=== PATIENT | male | born 1985 | race Caucasian/White ===

== ENCOUNTER 2019-12-07 10:31 | Emergency (ER) | payer OTHER, MEDICAID ==
[~2019-12-07] VITALS: Ht 167.6 cm; Wt 75.0 kg
[2019-12-07] MEDS ORDERED: ACET-2865 PO (10:36)
[2019-12-07] MEDS ORDERED: IBUPROFEN 600 MG TABLET PO ONE (11:00)
[2019-12-07 12:36] VITALS: BP 128/86
== END 2019-12-07 12:39 | disposition home or self-care (01) ==
LOC: EMS 10:36
DX: S13.4XXA Sprain of ligaments of cervical spine, initial encounter (principal); R51.9 Headache, unspecified; V49.9XXA Car occupant (driver) (passenger) injured in unspecified traffic accident, initial encounter; Y93.89 Activity, other specified; Y92.89 Other specified places as the place of occurrence of the external cause; Y99.8 Other external cause status
CPT/HCPCS: 70450; 72125